=== PATIENT | female | born 1995 | race African-American/Black ===

== ENCOUNTER 2016-12-19 11:58 | Emergency (ER) | payer OTHER, MEDICAID ==
[~2016-12-19] VITALS: Ht 165.1 cm; Wt 97.5 kg
[~2016-12-19 11:58] MED LIST: NORG1TAB5 PO
[2016-12-19 12:17] VITALS: BP 126/67
--- NOTE | 2016-12-19 12:51 | NUR ---
Patient ambulated to bed 01.
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
[2016-12-19 13:36] VITALS: BP 121/69
--- NOTE | 2016-12-19 13:36 | NUR ---
Patient discharged with v/s stable. Written and verbal after care instructions given and explained. Patient alert, oriented and verbalized understanding of instructions. Ambulatory with to car. All questions addressed prior to discharge. ID band removed. Patient advised to follow up with PMD. Rx of MOtrin and Robaxin given. Patient educated on indication of medication including possible reaction and side effects. Opportunity to ask questions provided and answered.
== END 2016-12-19 13:36 | disposition home or self-care (01) ==
LOC: MED 11:58
DX: M54.2 Cervicalgia (principal); R51 Headache; M54.5 Low back pain; J45.909 Unspecified asthma, uncomplicated; V43.52XA Car driver injured in collision with other type car in traffic accident, initial encounter; Y93.I9 Activity, other involving external motion; Y92.488 Other paved roadways as the place of occurrence of the external cause; Y99.8 Other external cause status
CPT/HCPCS: 99283